=== PATIENT | female | born 1990 | race Caucasian/White ===

== ENCOUNTER 2023-05-15 18:45 | Emergency (ER) | payer OTHER, SELFPAY ==
[2023-05-15 18:51] VITALS: BP 128/78; PULSE 125; RESP 17; TEMP 36.7; O2SAT 94
[2023-05-15 19:16] LABS: Basophils Percent Auto 0.3 % (0.2-1.2); Eosinophils Percent Auto 0.1 % (0-4.4); Hematocrit 32.9 % (37.0-47.0); Hemoglobin 11.2 g/dL (12.0-15.0); Immature Granulocyte Absolute 0.04 K/mm3 (0.00-0.031); Immature Granulocyte Percent A 0.4 % (0-0.5); Lymphocytes Absolute Auto 0.95 K/mm3 (0.9-3.2); Lymphocytes Percent Auto 9.9 % (18.3-44.2); Mean Corpuscular Hemoglobin 30.6 pg (26-34); Mean Corpuscular Volume 89.9 fl (80-100); Mean Platelet Volume 10.3 fl (7.4-10.4); Monocytes Absolute Auto 0.5 K/mm3 (0.1-0.6); Monocytes Percent Auto 5.6 % (2.6-8.5); Neutrophils Percent Auto 83.7 % (45.5-73.1); Platelet Count Result 190 k/mm3 (150-375); Red Blood Count 3.66 M/mm3 (4.2-5.4); Red Cell Distribution Width 11.9 % (11.5-14.5); White Blood Count 9.6 K/mm3 (4.5-10.0)
--- NOTE | 2023-05-15 19:16 | ED.GENADULT ---
HPI - General Adult General Chief complaint: Unspecified Stated complaint: 6 MO PREG N/V BODY ACHES Time Seen by Provider: 05/15/23 18:56 History of Present Illness HPI narrative: 33-year-old female that is 6 months presents emergency department for evaluation of persistent nausea vomiting and abdominal cramping. Patient states symptoms started yesterday. Patient has not had issues with hyperemesis gravidarum during this . This was the patient's first . Patient does follow-up with Dr. Small. Patient denies any current abdominal pain or abdominal cramping. Patient states the cramping occurs with the nausea vomiting and bending over. 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 Patient denies any pain with urination Related Data Allergies Allergy/AdvReac Type Severity Reaction Status Date / Time No Known Allergies Allergy Verified 04/21/23 16:44 Review of Systems Review of Systems: All systems reviewed & are unremarkable except as noted in HPI and below PMFSH Past Medical History Medical History Abnormal Pap smear of cervix Kidney stones Suppression of menses Family History Family History Father Diabetes mellitus Asthma Malignant neoplasm of prostate Father Asthma Cancer Hypertension Diabetes mellitus Heart disease Sibling Depression Grandparent Asthma Cancer Hypertension Depression Heart disease Thyroid disorder Social History Social History Smoking status: Never smoker Alcohol intake: current Alcohol use details: socially Substance use: never Substance use type: marijuana Current Housing: Decline to Answer Concerned About Future Housing: Decline to Answer Difficulty Paying Gas/Electric Bills: Decline to Answer Difficulty Paying for Meds: Decline to Answer Currently Unemployed: Decline to Answer Education: Decline to Answer Difficulty w/ Childcare or Family Care: Decline to Answer Living arrangements: with family Occupation/Education: occupation Additional occupation/education comments: teacher Gender identity (if verbalized by the patient): Female Sexual Orientation (if Verbalized by the Patient): Straight or Heterosexual Exam Narrative: APPEARANCE: Well appearing, no pain, no distress, well-nourished. HEAD: normocephalic, atraumatic. EYES: PERRLA/EOMI, conjunctivae clear. NOSE: Normal no drainage NECK: Supple. No adenopathy, no masses. RESPIRATORY: Airway patent, respirations nonlabored. Clear to auscultation bilaterally, no rales, rhonchi, wheezing. CARDIOVASCULAR: Regular rate and rhythm without murmurs rubs or gallops. ABDOMINAL: Soft, nontender, nondistended, normal bowel sounds MUSCULOSKELETAL: Moves all extremities. Strength/ROM intact, No edema, No calf tenderness. NEURO: Alert. Cranial nerves II through XII intact. SKIN: Warm, dry. Normal Color Course Course Emergency Course: 33-year-old female presented emergency department for evaluation of persistent nausea and vomiting. Patient is being treated with IV fluids and IV Zofran. Patient did feel significantly improved with rehydration. Patient has had no further emesis in the ED. Patient's white blood cell count is 9.6 with stable hemoglobin 11.2. No significant electrolyte abnormalities. Patient did test positive for COVID Patient had no urinary complaints but UA did have some leukoesterase and bacteria. Urine culture was ordered. Vital Signs Vital signs: Vital Signs Temperature 98.0 F 05/15/23 18:51 Pulse Rate 125 H 05/15/23 18:51 Respiratory Rate 17 05/15/23 18:51 Blood Pressure 128/78 05/15/23 18:51 Pulse Oximetry 94 05/15/23 18:51 Oxygen Delivery Room Air 05/15/23 18:51 Temperature 98.0 F 05/15/23 18:51 Pulse Rate 94 05/15/23 20:15 Respi
[2023-05-15] MEDS: SODIUM CHLORIDE 0.9% IV 1,000 ML 999 ML IV CONT (19:18)
--- NOTE | 2023-05-15 19:25 | PC.NURSE ---
This RN assumed care of patient. This RN took patient report from [facility].
[2023-05-15 19:26] LABS: Alanine Aminotransferase 61 U/L (6-35); Albumin Level 3.8 g/dL (3.5-5.1); Alkaline Phosphatase 80 U/L (38-126); Anion Gap 8 mmol/L (8-16); Aspartate Amino Transferase 59 U/L (14-36); Bilirubin,Total 0.4 mg/dL (0.2-1.3); Blood Urea Nitrogen 8 mg/dL (7-17); Carbon Dioxide 22 mmol/L (22-30); Chloride 102 mmol/L (98-107); Estimated CRCL calculation 127 ml/min; Estimated Glomerular Filt Rate > 60; Glucose 134 mg/dL (65-110); Potassium 3.3 mmol/L (3.4-5.0); Sodium 132 mmol/L (137-145)
[2023-05-15] MEDS: ONDANSETRON INJ 4 MG/2 ML VIAL IV PUSH (19:31)
[2023-05-15 19:46] VITALS: BP 103/72; PULSE 112; RESP 18; O2SAT 100
[2023-05-15 19:51] LABS: Influenza A QL RT-PCR Negative (Negative); Influenza B QL RT-PCR Negative (Negative); RSV RNA, RT-PCR Negative (Negative); SARS-CoV-2 RNA PCR Positive (Negative)
[2023-05-15 20:15] VITALS: BP 104/74; PULSE 94; RESP 17; O2SAT 100
[2023-05-15 20:38] LABS: Appearance Urine Slightly Cloudy (Clear); Bilirubin Urine Negative (Negative); Blood Urine Negative (Negative); Color Urine Yellow (Yellow); Glucose Urine UA Trace mg/dL (Negative); Ketones Urine 1+ mg/dL (Negative); Leukocyte Esterase Ur 1+ LEU/UL (Negative); Nitrate Urine Negative (Negative); Protein Urine 1+ mg/dL (Negative); Specific Grav Ur >= 1.030 (1.001-1.035); Urobilinogen Urine 0.2 mg/dL (<2.0); pH Urine 5.5 (5.0-9.0)
[2023-05-15 20:55] LABS: Bacteria Urine 2+ /hpf; Need Manual Microscopic Reviewed; RBC Urine 0-2 /hpf (0-2); Squamous Epithelial Cell Urine Moderate /hpf (Few); WBC Urine 51-100 /hpf
[2023-05-15 20:56] LABS: Add Urine Microscopic? YES
== END 2023-05-15 21:22 | disposition home or self-care (01) ==
PROVIDERS: Emergency Provider Emergency Medicine; PCP Family Medicine
DX: O98.519 Other viral diseases complicating pregnancy, unspecified trimester (principal); U07.1 COVID-19; O21.2 Late vomiting of pregnancy; Z87.442 Personal history of urinary calculi; Z3A.00 Weeks of gestation of pregnancy not specified
CPT/HCPCS: 36415; 80053; 81001; 81025; 85025; 87086; 87088; 87637; 96361; 96374; 99284; J2405; J7030

== ENCOUNTER 2023-08-02 05:31 | Inpatient (IN) | payer OTHER, SELFPAY ==
[2023-08-02] VITALS (157 sets, daily range): BP systolic 90–166; BP diastolic 53–128; PULSE 69–175; TEMP 36.2–37.6; O2SAT 97–100; BMI 30.2
[2023-08-02 06:44] LABS: Basophils Percent Auto 0.2 % (0.2-1.2); Eosinophils Absolute Auto 0.1 K/mm3 (0-0.3); Eosinophils Percent Auto 0.7 % (0-4.4); Hematocrit 31.3 % (37.0-47.0); Hemoglobin 10.1 g/dL (12.0-15.0); Immature Granulocyte Absolute 0.12 K/mm3 (0.00-0.031); Immature Granulocyte Percent A 0.9 % (0-0.5); Lymphocytes Absolute Auto 3.22 K/mm3 (0.9-3.2); Lymphocytes Percent Auto 24.2 % (18.3-44.2); Mean Corpuscular HGB Conc 32.3 g/dl (32-36); Mean Corpuscular Hemoglobin 28.5 pg (26-34); Mean Corpuscular Volume 88.2 fl (80-100); Mean Platelet Volume 12.4 fl (7.4-10.4); Monocytes Absolute Auto 0.7 K/mm3 (0.1-0.6); Neutrophils Absolute Auto 9.2 K/mm3 (1.3-6.7); Platelet Count Result 193 k/mm3 (150-375); Red Blood Count 3.55 M/mm3 (4.2-5.4); Red Cell Distribution Width 13.4 % (11.5-14.5); White Blood Count 13.3 K/mm3 (4.5-10.0)
[2023-08-02] MEDS: LACTATED RINGERS 1,000 ML 125 ML IV CONT ×4 (07:20→22:59)
[2023-08-02] MEDS: OXYTOCIN 30 UNITS/NS 500 ML 30 UNITS/500 ML BAG 6 UNITS IV CONT (11:21)
[2023-08-02] MEDS: ONDANSETRON INJ 4 MG/2 ML VIAL IV PUSH (12:12)
[2023-08-02] MEDS: fentaNYL CITRATE INJ (*CRX) 100 MCG/2 ML VIAL IV PUSH (12:19)
--- NOTE | 2023-08-02 13:22 | WPDANESEPP ---
Anes - Eval Pre Procedure Procedure: Labor Epidural Date/Time: 08/02/23 13:22 Surgeon: Geovanny Preop Diagnosis: Labor Pain Pre Op Diagnosis: SROM Patient Data Age: 33 Gender: F Height: 1.68 m Weight: 85 kg Last Vital Signs Temp 36.6 C 08/02/23 12:14 Pulse 97 08/02/23 13:21 BP 119/78 08/02/23 13:21 Pulse Ox 99 08/02/23 13:16 O2 Del Method Room Air 08/02/23 07:30 Allergies Allergy/AdvReac Type Severity Reaction Status Date / Time No Known Allergies Allergy Verified 07/26/23 13:12 Home Medications Medication Instructions Recorded Confirmed Type vits no.126-ferrous fum 1 tablet PO DAILY 07/23/23 07/26/23 History 28 mg iron-folic acid 800 mcg tablet (Classic ) famotidine 40 mg tablet (Pepcid) 40 mg PO DAILY 07/26/23 07/26/23 History Laboratory Tests 08/02/23 06:31 WBC 13.3 H K/mm3 (4.5-10.0) RBC 3.55 L M/mm3 (4.2-5.4) Hgb 10.1 L g/dL (12.0-15.0) Hct 31.3 L % (37.0-47.0) MCV 88.2 fl (80-100) MCH 28.5 pg (26-34) MCHC 32.3 g/dl (32-36) RDW 13.4 % (11.5-14.5) Plt Count 193 k/mm3 (150-375) MPV 12.4 H fl (7.4-10.4) Immature Gran % (Auto) 0.9 H % (0-0.5) Neut % (Auto) 69.0 % (45.5-73.1) Lymph % (Auto) 24.2 % (18.3-44.2) Rogers % (Auto) 5.0 % (2.6-8.5) Eos % (Auto) 0.7 % (0-4.4) Baso % (Auto) 0.2 % (0.2-1.2) Lymph # (Auto) 3.22 H K/mm3 (0.9-3.2) Rogers # (Auto) 0.7 H K/mm3 (0.1-0.6) Eos # (Auto) 0.1 K/mm3 (0-0.3) Baso # (Auto) 0.0 K/mm3 (0.0-0.1) Abs Immat Gran (auto) 0.12 H K/mm3 (0.00-0.031) Absolute Neuts (auto) 9.2 H K/mm3 (1.3-6.7) Absolute Nucleated RBC 0.0 K/mm3 (0.0-0.012) Nucleated RBC % 0.0 % (0.0-0.2) RPR Pending Blood Type O Positive Antibody Screen Negative Patient hx anesthesia problems: none Family hx anesthesia problems: none Results Review: All pre-operative results and documents have been reviewed as part of the pre-operative evaluation. [facility] Past Medical History Medical History Abnormal Pap smear of cervix Kidney stones Suppression of menses Family History Family History Father Diabetes mellitus Asthma Malignant neoplasm of prostate Father Asthma Cancer Hypertension Diabetes mellitus Heart disease Sibling Depression Grandparent Asthma Cancer Hypertension Depression Heart disease Thyroid disorder Social History Social History Smoking status: Never smoker Alcohol intake: current Alcohol use details: socially Substance use: never Substance use type: marijuana Do You Feel Safe in your Home?: Yes Lack of Transportation: No Lack of Food: Never True Current Housing: I Have Housing Concerned About Future Housing: No Difficulty Paying Gas/Electric Bills: No Difficulty Paying for Meds: No Currently Unemployed: YES Education: Bachelor's Degree Difficulty w/ Childcare or Family Care: No Living arrangements: with family Occupation/Education: occupation Additional occupation/education comments: teacher Gender identity (if verbalized by the patient): Female Sexual Orientation (if Verbalized by the Patient): Straight or Heterosexual Spiritual care concerns: No Exam Day of Procedure 08/02/23 13:22 Patient weight: normal Heart: regular rate and rhythm Lungs: normal air movement Airway: Mallampati scale class II Neurological: alert and oriented
[2023-08-02] MEDS: FAMOTIDINE 20 MG/2 ML VIAL IV PUSH (14:30)
[2023-08-02] MEDS: SODIUM CHLORIDE 0.9% IV 300 ML 600 ML I-UTERINE (21:03)
[2023-08-02] MEDS: OXYTOCIN 30 UNITS/NS 500 ML 30 UNITS/500 ML BAG 999 UNITS IV CONT (22:09)
--- NOTE | 2023-08-02 22:21 | WPDOBADMIT ---
Obstetrics - Admit Note Admission Note: record reviewed. No pertinent additions to the history and/or any subsequent changes in the physical findings that are not consistent with the expected course of the were found. Additions to the history and/or subsequent changes in the physical findings follow. Here at 38 wks with SROM not in labor. After 6 hours observation without significant contractions, Pitocin started per protocol. When changed to 7 cm, tracing with repetitive variables so amnioinfusion started. Progressed quickly to complete. Progressed to c/p on my arrival head is visible without pushing.
--- NOTE | 2023-08-02 22:23 | PM.OBPRVD ---
OB - Vaginal Delivery Note Procedure Delivery date: 08/02/23 Induction method: None Delivery augmentation: Pitocin Delivery monitor: External FHT and Internal Uterine Route of delivery: Laceration Description: Periurethral (R) and Perineal - 2nd Degree Delivery repair: vicryl (3-0) Specimen: Yes (placenta) Quantitative Blood Loss (ml): 100 Anesthesia type: Epidural [place] Baby Date of : 08/02/23 Weeks of gestation at delivery: 38 Infant gender: Female presentation: vertex position: Right Occiput Anterior Placenta delivery description: Spontaneous Cord Vessel Description: 3 Vessels and Delayed Cord Clamping score one minute: 9 score five minutes: 9
[2023-08-02] MEDS: OXYTOCIN 30 UNITS/NS 500 ML 30 UNITS/500 ML BAG 125 UNITS IV CONT (22:39)
[2023-08-02] MEDS: IBUPROFEN 600 MG TABLET PO (23:11)
[2023-08-02] MEDS: WITCH HAZEL 40 PADS 1 PAD TOPICAL (23:12)
[2023-08-02] MEDS: BENZOCAINE 20% AER SPR (*SP) 56 GM CAN 1 SPRAY TOPICAL (23:12)
[2023-08-03] VITALS (7 sets, daily range): BP systolic 117–137; BP diastolic 72–83; PULSE 76–99; RESP 16–18; TEMP 36.7–37.1; O2SAT 98–100
--- NOTE | 2023-08-03 00:33 | PC.NURSE ---
Patient transferred to post room #283 via ( W/C ). Support person present. Oriented to unit, room, information board, rooming in, admission packet and security measures. Patient verbalizes understanding.
[2023-08-03 05:21] LABS: Hematocrit 26.5 % (37.0-47.0); Hemoglobin 8.4 g/dL (12.0-15.0)
[2023-08-03] MEDS: DOCUSATE SODIUM 100 MG CAPSULE PO (07:54)
[2023-08-03] MEDS: IBUPROFEN 600 MG TABLET PO ×2 (07:54→20:12)
--- NOTE | 2023-08-03 08:34 | PM.OBPNVD ---
OB - PN: Subj Subjective Date/time seen: 08/03/23 08:20 Interval history: Doing well. Urinating without difficulty. Denies passing any large clots. Denies dizziness with ambulating. Tolerating po food and fluids. Bonding with . Partner present and supportive. Patient comments: no complaints and pain well controlled [place] baby status: doing well [place] feeding status: exclusively breast feeding OB - PN: Obj Data Labs 08/03/23 05:10 Labs: Laboratory Results - last 24 hr 08/03/23 05:10 Hgb 8.4 L Hct 26.5 L OB - PN A/P Plan day: 1 Plan: routine care Time Spent With Patient Time: Total time spent is greater than 50% in coordination of care (as documented) at patient's floor/unit and/or counseling patient: Review of Systems Review of Systems: All systems reviewed & are unremarkable except as noted in HPI and below Exam Narrative: Alert and oriented. Mood is pleasant and cooperative. Perineum with minimal edema. Fundus firm and below umbilicus. Const: General: cooperative, healthy appearing, no acute distress and alert Orientation/consciousness: patient oriented x3 Limitations: no limitations Resp: Effort & Inspection: normal respiratory effort and able to speak in complete sentences Auscultation: clear to auscultation bilaterally Cardio: Rate: regular rate GI: Inspection: normal to inspection Auscultation: normal bowel sounds : General: Yes bladder normal to palpation External Female Exam: other (lochia WNL) Bimanual exam- vagina & uterus: bladder normal to palpation Other: Fundus firm and below U Skin: General skin exam: normal color and no rashes or lesions noted Neuro: General: patient oriented x3 and moves all extremities Cognition (Neuro): normal cognition Extrem: General: normal to inspection and no calf tenderness Psych: Appearance: grossly normal Mental Status: mental status grossly normal Affect: normal affect Thought process: Normal thought process present
--- NOTE | 2023-08-03 08:55 | PC.NURSE ---
Breast pump provided due to mother's request, baby won't wake up to eat. Instructions given on cleaning, care, usage, that there should be no pain, pumping schedule for milk production, collection, and storage of human milk. Patient was assessed for correct placement, flange size, to pump for comfort and nipple stretching/stimulation for adequate milk production every 3 hours (8 times in 24 hours) 1-2 times at night. Parents are encouraged to record the pumping schedule on the feeding sheet.?Mother voiced understanding of the education shared along with mom/baby guide and the pump measurement, flange fit handout for additional resource information.
[2023-08-03 10:33] LABS: Rapid Plasma Reagin Non-Reactive (NonReactive)
--- NOTE | 2023-08-04 07:48 | P.DS_ITS ---
DS: Admitting Diagnosis Discharge Date 08/04/23 Admitting Diagnosis intrauterine at term spontaneous rupture of membranes DS: Discharge Diagnosis Discharge Diagnosis (1) Normal vaginal delivery: Code(s): O80 - Encounter for full-term uncomplicated delivery Status: Acute OB - DS: Summary Hospital Course Hospital Course: 33-year-old who presented at 38 weeks after spontaneous rupture of membranes. Patient's labor was augmented with Pitocin. Patient had an un complicated vaginal delivery. Her course remained uncomplicated. She was discharged home on day 2. OB Procedures : None OB Procedures Intrapartum: Spontaneous Vag Delivery OB Procedures: : None Peripartum Data Laceration Description: Periurethral (R) and Perineal - 2nd Degree Status at Discharge Functional status at discharge: independent ambulation Overall status at discharge: patient is back to baseline Time Spent with Patient Time attestation: Total time spent providing and/or coordinating discharge services: Time spent: Less than 30 minutes Exam Const: General: comfortable and no acute distress Resp: Effort & Inspection: normal respiratory effort Auscultation: clear to auscultation bilaterally Cardio: Rate: regular rate GI: GI Palp: Yes Soft to palpation Auscultation: normal bowel sounds Other: Fundus firm below umbilicus Psych: Appearance: grossly normal Mental Status: mental status grossly normal Affect: normal affect DS: Data Data Completed and Pending Pending studies at discharge: Pending at discharge 08/02/23 23:01 Surgical [PTH] Routine Labs on day of discharge: Labs from last 24 hours 08/02/23 06:31 RPR Non-reactive Discharge Plan Discharge Discharging Clinician: Jose Antonio Espinosa Patient Disposition: Home, Self-Care Activity: as tolerated and pelvic rest Diet: regular Patient Instructions: Antibiotic Form, Perineal Tear with Delivery (GEN), Vaginal Delivery (DC) Stand Alone Forms: General Discharge Information Follow-up/Referrals: Soco Small MD [Physician] - Discharge Medications: New acetaminophen 500 mg tablet 500 mg PO Q6H PRN (Reason: pain) Qty: 30 0RF ibuprofen 600 mg tablet 600 mg PO Q6H PRN (Reason: pain) Qty: 30 0RF Continued famotidine [Pepcid] 40 mg tablet 40 mg PO DAILY Classic 28 mg iron- 800 mcg Tablet 1 tablet PO DAILY Date of admission: 08/02/23 05:31 Primary Care Provider: Lizz Long Admitting Provider: Soco Small Attending physician on admission: Soco Small Condition: Stable
[2023-08-04 08:48] VITALS: BP 122/84; PULSE 75; RESP 20; TEMP 36.3; O2SAT 99
[2023-08-04] MEDS: MULTIVIT/MIN/PREN/FOL AC/IRON TABLET 1 TAB PO (09:24)
[2023-08-04] MEDS: MEASLES,MUMPS,RUBELLA VACCINE 0.5 ML VIAL SUB-Q (12:26)
--- NOTE | 2023-08-04 16:04 | PC.NURSE ---
Addendum entered by Zulma Thomas RN 08/04/23 16:14: The later report from the primary RN assisting with a latch is on the wrong patient. Primary RN states mother did not call out for latch assistance before going home. Original Note: [id number] Introductions were made, then consulted with patient to assess needs related to . Mother led the conversation with her?plans to feed?her infant, the?experience so far and parents state received a bottle at 0815. Encouraged understanding of the benefits of skin to skin (demonstrating unwrapping and placing upright on her chest), stimulating with massage touch, changing positions to encourage wakefulness, how to watch for early feeding cues, responsive feeding, feeding on demand (aiming for 8-12 times in 24 hours, about every 2-3 hours), milk production, building/maintaining a milk supply, duration of feeding, signs of adequate intake/output and how to record on the feeding sheet. Reviewed positioning and ear, shoulder, hip alignment, supporting the breast to facilitate a deep latch, asymmetrical latch (off-center), leading with the chin with a big, open, wide gape and body close to mother. Reminded mother to use good handwashing technique to prevent infection. Mother is feeding appropriately for growth of and understands stimulating infant to eat if needed. has had appropriate feedings in the last 24 hours meets the outcomes for weight, output, blood sugar and jaundice at this time with combo feeding. Mother states she is confident to continue effectively feed her at home, when to call for assistance, denies any additional assistance or education at this time. Reinforced understanding of milk production, transition of milk, signs of adequate intake, transition of stool, prevention/relief of engorgement, plugged ducts, mastitis, responsive watching for feeding cues, the different methods of stimulating to breastfeed 1-3 hours after the start of the last feeding, community resources, and when to call a provider using the resource of the mom and baby guide and feeding sheet. Mother voiced understanding of the education shared and was encouraged to call for latch assistance with the next feeding. Primary RN reported later in the day that mother called out and she assisted with the latch with no complaint of pain.
[2023-08-05 11:30] VITALS: BP 129/90; PULSE 78; RESP 18; TEMP 37.1; O2SAT 98
== END 2023-08-04 14:25 | disposition home or self-care (01) | DRG 807 ==
LOC: ANHLDR 06:11 → ANHOB2 08-03 00:34
PROVIDERS: Obstetrics & Gynecology Gynecology; Admitting Provider Obstetrics & Gynecology; PCP Family Medicine; Visit Provider Obstetrics & Gynecology
DX: O70.1 Second degree perineal laceration during delivery (principal); Z37.0 Single live birth; Z3A.38 38 weeks gestation of pregnancy; O71.82 Other specified trauma to perineum and vulva
CPT/HCPCS: 36415; 84112; 85014; 85018; 85025; 86592; 86850; 86900; 86901; 88307; 90710; A9270; J2405; J2590; J2795; J3010; J7030; J7120

== ENCOUNTER 2024-06-27 12:43 | Outpatient (CLI) | payer OTHER, SELFPAY ==
--- NOTE | ~2024-06-27 | US_ITS ---
EXAMINATION: US OB transvaginal DATE: 06/27/2024 13:12 INDICATION: Amenorrhea. Establish dating of during first trimester TECHNIQUE: Real-time pelvic ultrasound utilizing both a transvaginal and transabdominal probe was pe rformed. The interpreting radiologist was not present for the study. COMPARISON: None. FINDINGS: The uterus measures 7.6 x 3.9 x 5.6 cm. There is an intrauterine gestational sac. A 4 mm yolk sac is identified but there is no discernible pole. The mean sac diameter measures 7 mm, which is out of range for determination of estimated gestational age. There is eccentric positioning of the gesta tional sac which is located at the lateral right side of the fundus. Is positioned in the region of t he right correlate with peripheral margin. The peripheral margin of the anechoic gestational sac exte nds to within 7 mm of the serosal surface of the uterus. On one of the transverse images the peripher al margin of the decidual reaction surrounding the gestational sac extends to within 3 mm of the sero [place] surface of the uterus. On the cine images there is suggestion of a possible septate uterus althou gh a true coronal view of the uterus is not obtained for more definitive determination. The right ovary measures 2.9 x 2.8 x 1.9 cm. The left ovary measures 2.5 x 2.4 x 2.0 cm. There is a 1 .2 cm hypoechoic likely corpus luteum cyst in the left ovary. There is no free fluid in the pelvis. IMPRESSION: 1. 4 mm intrauterine gestational sac which is eccentric positioned in the region of the right cornua with the sac extends to within 7 mm the serosal surface of the uterus and the surrounding decidual re action to within 3 mm the serosal surface of uterus. This is concerning for either interstitial or po tentially a cornual with suggestion of possible septate uterus on the cine imaging. Dr. Danae knapp discussed these findings with Dr. Espinosa at 1:55 PM. 2. Gestational sac too small to diagnostically assess for estimated gestational age. Reviewed, dictated and finalized at location B. SITE COORDINATOR IMPRESSION: 1. 4 mm intrauterine gestational sac which is eccentric positioned in the regio n of the right cornua with the sac extends to within 7 mm the serosal surface o f the uterus and the surrounding decidual reaction to within 3 mm the serosal s urface of uterus. This is concerning for either interstitial or potentially a c ornual with suggestion of possible septate uterus on the cine imaging . Dr. Cooper discussed these findings with Dr. Espinosa at 1:55 PM. 2. Gestational sac too small to diagnostically assess for estimated gestational age.
== END 2024-06-27 12:44 | disposition home or self-care (01) ==
LOC: MICIMG 12:43
PROVIDERS: PCP Student in an Organized Health Care Education/Training Program; Visit Provider Student in an Organized Health Care Education/Training Program
DX: N91.2 Amenorrhea, unspecified (principal)
CPT/HCPCS: 76817

== ENCOUNTER 2024-07-03 11:41 | Outpatient (CLI) | payer OTHER, SELFPAY | END 2024-07-03 11:42 | disposition home or self-care (01) | LOC: ANHLAB 11:42 | PROVIDERS: PCP Student in an Organized Health Care Education/Training Program; Visit Provider Obstetrics & Gynecology | DX: N94.89 Other specified conditions associated with female genital organs and menstrual cycle (principal) | CPT/HCPCS: 36415; 84702 ==

== ENCOUNTER 2024-07-13 00:57 | Day surgery (SDC) | payer OTHER, SELFPAY ==
[2024-07-10 08:31] VITALS: BMI 22.9
--- NOTE | 2024-07-10 08:32 | PC.NURSE ---
Report to the Outpatient Waiting Room, entrance under the green pavilion located off [facility], at time _1045_ on date _[id number]_. Planned Procedure Time: _1245_.? Time changes happen often and if your time is changed the preop area will call you the afternoon before. - You and your visitor will be asked to self-screen and do not enter if you have any COVID symptoms. Please call surgeon if you need to reschedule. - A mask is optional within the hospital at this time. Patients may have clear liquids (water, carbonated beverages, clear teas, apple juice) until 3 hours prior to surgery with a maximum of 20 ounces. - No food from midnight until time of surgery and no smoking. This includes no chewing gum, candy or mints. Take only the following medications with a SIP of water on the morning of surgery: ___None DO NOT STOP ANY OF YOUR OTHER PRESCRIPTION MEDICATIONS PRIOR TO SURGERY EXCEPT THE FOLLOWING Medications to discontinue per physician ____Vinhharjinder says she stopped vitamin a couple days ago.____ Date to take last dose Please no make-up, nail uruguayan, hairspray, perfume, deodorant, or body powder the day of surgery.? No jewelry (including any body piercings) or valuables the day of surgery, leave them at home.? Please take a shower or bath the night before, or the morning of, surgery with an antibacterial soap.? Wear comfortable, loose fitting clothing.? - Jewelry must be removed prior to entering the operating room.? Rings and piercings that are not removed may be cut off. - The hospital will not accept responsibility for valuables.? - Please leave all valuables, including medications, at home the day of surgery. If you are going home after surgery, a licensed company truck driver must drive you home.? - NO public transportation without another adult if you receive anesthesia. - We recommend that an adult stay with you for 24 hours following discharge. - We also recommend that you do not drive, make important decision, drink alcoholic beverages, or take any drugs that were not prescribed by your health care provider for at least 24 hours after your discharge time. Follow any additional instructions given to you from your surgeon. Telephone instructions given to __Amalia__and asked if any additional questions and then verbalized understanding. Patient advised to call surgeon office or pre surgery nurse liaison [phone] if any additional questions.
--- NOTE | 2024-07-13 07:35 | PM.IMHP ---
H&P: HPI History of Present Illness Date/Time: 07/13/24 07:35 Chief Complaint: spontaneous missed Narrative: 34-year-old who presents for suction D&C for spontaneous missed . Patient had early loss diagnosed on ultrasound. Patient started to have bleeding and passage of tissue last night. Patient elects for surgical management. Review of Systems Cardiovascular: Cardiovascular: Denies chest pain, Denies leg edema, Denies palpitations, Denies dyspnea and Denies dyspnea on exertion Respiratory: Respiratory: Denies cough, Denies dyspnea and Denies dyspnea on exertion Gastrointestinal: Gastrointestinal: Denies abdominal pain, Denies constipation, Denies diarrhea, Denies nausea and Denies vomiting Genitourinary: Genitourinary: Denies hematuria, Denies urinary frequency, Denies dysuria, Denies pelvic pain, Denies urinary incontinence and Denies vaginal discharge Neurologic: Reports system reviewed and no additional complaints, except as documented Psychiatric: Psychiatric: Reports no additional psychiatric complaints Endocrine: Endocrine: Denies palpitations PMFSH Past Medical History Medical History Abnormal Pap smear of cervix Kidney stones Suppression of menses Family History Family History Father Diabetes mellitus Asthma Malignant neoplasm of prostate Father Asthma Cancer Hypertension Diabetes mellitus Heart disease Sibling Depression Grandparent Asthma Cancer Hypertension Depression Heart disease Thyroid disorder Social History Social History Smoking status: Never smoker Alcohol intake: current Alcohol use details: socially Substance use: never Substance use type: marijuana Do You Feel Safe in your Home?: Yes Lack of Transportation: No Lack of Food: Never True Current Housing: I Have Housing Concerned About Future Housing: No Difficulty Paying Gas/Electric Bills: No Difficulty Paying for Meds: No Currently Unemployed: YES Education: Bachelor's Degree Difficulty w/ Childcare or Family Care: No Living arrangements: with family Occupation/Education: occupation Additional occupation/education comments: teacher Gender identity (if verbalized by the patient): Female Sexual Orientation (if Verbalized by the Patient): Straight or Heterosexual Spiritual care concerns: No Meds Home Medications and Allergies Home Medications Medication Instructions Recorded Confirmed Type vits no.126-ferrous fum 1 tablet PO DAILY 07/23/23 07/10/24 History 28 mg iron-folic acid 800 mcg tablet (Classic ) Allergies Allergy/AdvReac Type Severity Reaction Status Date / Time No Known Allergies Allergy Verified 07/10/24 08:27 Exam Const: General: no acute distress Eyes: EOM: EOMs intact bilaterally Neck: Neck: supple Thyroid: thyroid normal Chest: Breast/axilla inspection: normal inspection of the breasts Breast/axilla palpation: normal palpation of the breasts, normal palpation of the axillae and no axillary lymphadenopathy Resp: Effort & Inspection: normal respiratory effort Auscultation: clear to auscultation bilaterally Cardio: Rate: regular rate Rhythm: regular rhythm GI: Inspection: non-distended GI Palp: Yes Soft to palpation, No Tenderness to palpation present (GI) and No Guarding due to palpation present (GI) Auscultation: normal bowel sounds : General: No bladder normal to palpation External Female Exam: normal external appearance Speculum Exam - Vagina: normal vaginal discharge and No vaginal bleeding Speculum Exam - Cervix: nontender Bimanual exam- vagina & uterus: No bladder normal to palpation and No Cervical tenderness present OB/external & speculum: No vaginal bleeding Skin: General skin exam: normal color and no rashes or lesions noted Neuro: Cognition (Neuro): normal cognition Speech: normal speech Extrem: General: normal to inspection and no edema Psych: Mental Status: mental status grossly normal Affect: normal affect Assessment and Plan Assessment and plan (1) Missed : Code(s): O02.1 - Missed Status: Acute Assessment and Plan: 34-year-old G2 P 101 1 who presents for suction D&C for management of missed Patient had early loss diagnosed on early ultrasound patient elected for surgical management of early loss Patient started having bleeding with passage of tissue last night Will plan for suction D&C under ultrasound guidance
[2024-07-13 11:30] VITALS: BP 102/72; PULSE 100; RESP 16; TEMP 36.5; O2SAT 100; BMI 22.4
[2024-07-13] MEDS: LACTATED RINGERS 1,000 ML 30 ML IV CONT (11:30)
--- NOTE | 2024-07-13 11:40 | WPDHPUPDATE1 ---
History and Physical Update Update Date/Time: 07/13/24 11:40 History and Physical has been reviewed, including an updated exam of the patient. There are NO changes in the patient's condition. Risks, benefits, and alternatives have been discussed and questions answered. Patient agrees to proceed with procedure.
[2024-07-13] MEDS: ACETAMINOPHEN 500 MG TABLET 1000 MG PO (12:07)
[2024-07-13] MEDS: DOXYCYCLINE 100 MG/NS 100 ML 100 MG/100 ML BAG IVPB (12:07)
--- NOTE | 2024-07-13 12:25 | PC.NURSE ---
Preop RN requested I come to speak with the patient regarding the safety of her child after receiving doxycycline. According to [employer] and Mother's Milk 2022, it is safe to breastfeed when taking doxycycline short term. It is an L3 category drug, probably compatible with . Advised patient that a one time IV dose of doxycycline will have minimal transfer to breast milk. Side effects for the infant during short term use (2-3 weeks) can be nausea and vomiting as well as a rash. Mom states that she is reassured about after her procedure today.
--- NOTE | 2024-07-13 12:43 | P.PNAN_ITS ---
Anes - Initial Pre Proc Eval Procedure: Operation Date: 07/13/24 12:45 Proposed Procedures p Suction Dilation and Curettage - Jose Antonio Espinosa MD Date/Time: 07/13/24 12:43 Surgeon: Jose Antonio Espinosa MD Pre Op Diagnosis: missed ab Patient Data Age: 34 Gender: F Height: 1.68 m Weight: 63 kg Last Vital Signs Temp 36.5 C 07/13/24 11:30 Pulse 100 07/13/24 11:30 Resp 16 07/13/24 11:30 BP 102/72 07/13/24 11:30 Pulse Ox 100 07/13/24 11:30 O2 Del Method Room Air 07/13/24 11:30 Allergies Allergy/AdvReac Type Severity Reaction Status Date / Time No Known Allergies Allergy Verified 07/13/24 11:54 Home Medications Medication Instructions Recorded Confirmed Type vits no.126-ferrous fum 1 tablet PO DAILY 07/23/23 07/13/24 History 28 mg iron-folic acid 800 mcg tablet (Classic ) Patient hx anesthesia problems: none Family hx anesthesia problems: none Results Review: All pre-operative results and documents have been reviewed as part of the pre- operative evaluation. [facility] Past Medical History Medical History Abnormal Pap smear of cervix Kidney stones Suppression of menses Family History Family History Father Diabetes mellitus Asthma Malignant neoplasm of prostate Father Asthma Cancer Hypertension Diabetes mellitus Heart disease Sibling Depression Grandparent Asthma Cancer Hypertension Depression Heart disease Thyroid disorder Social History Social History Smoking status: Never smoker Alcohol intake: current Alcohol use details: socially Substance use: never Substance use type: marijuana Do You Feel Safe in your Home?: Yes Lack of Transportation: No Lack of Food: Never True Current Housing: I Have Housing Concerned About Future Housing: No Difficulty Paying Gas/Electric Bills: No Difficulty Paying for Meds: No Currently Unemployed: YES Education: Bachelor's Degree Difficulty w/ Childcare or Family Care: No Living arrangements: with family Occupation/Education: occupation Additional occupation/education comments: teacher Gender identity (if verbalized by the patient): Female Sexual Orientation (if Verbalized by the Patient): Straight or Heterosexual Spiritual care concerns: No Anes - Eval Final PreProcedure Day of Procedure 07/13/24 12:43 Patient weight: normal Heart: regular rate and rhythm Lungs: clear to auscultation Airway: Mallampati scale class II Neurological: alert and oriented Last oral intake: >/= 8 hours ASA classification: II Emergent: no Anesthetic plan: proceed Anesthesia type and monitoring: general GIVS and standard monitoring Results Review: All pre-operative results and documents have been reviewed as part of the pre- operative evaluation. Informed Consent: The patient's anesthetic plan and its attendant risks and benefits were discussed with the patient/family/POA. Questions were solicited and answers provided to the satisfaction of the patient/family/POA.
--- NOTE | 2024-07-13 13:07 | W.PM.PROC2 ---
Procedure Note - Detailed Date of Procedure 07/13/24 Pre-op Diagnosis missed ab Post-op Diagnosis Same Procedure Performed Suction Dilation & curettage Surgeon Jose Antonio Espinosa MD Anesthesia General Indications spontaneous missed on pelvic US Findings intrauterine products of conception Description of Procedure The patient was taken to the operating room after a missed had been noted on on transvaginal ultrasound. The risks, benefits and alternatives of the procedure were reviewed with the patient and informed consent was obtained. The patient was taken to the OR and anesthesia was noted to be adequate. The patient was placed in the dorsolithotomy position. Pelvic exam was performed with findings noted above. The patient was prepped and draped in the usual sterile fashion. Sterile speculum was placed in the vagina and the cervix was grasped with a tenaculum. The cervix was dilated further to allow for passage of a 8 mm suction curette. The 8 mm suction curette was gently advanced to the fundus, suction was activated, and the tip was rotated while being withdrawn to clear the uterus of products. This suction process was repeated 3 additional times due to the quantity of material in the uterus. The sharp curette was introduced and advanced to the fundus to remove any remaining products. The suction curette was reintroduced one final time to ensure all products had been removed. The entire procedure was performed on direct bedside US. Good endometrial stripe was noted on US. The tenaculum was removed. Good hemostasis was noted. Instrument, sponge, and sharp counts were correct. Patient tolerated the procedure well and was taken to the recovery room in stable condition. Estimated Blood Loss 15 Drains No Packing No Pathology Yes (products of conception ) Complications No immediate complications Condition Stable Disposition PACU [facility] Billing Surgery - Charge Forward: Surgery Billing
[2024-07-13 13:09] VITALS: BP 94/53; PULSE 76; RESP 14; O2SAT 98
[2024-07-13 13:35] VITALS: BP 90/49; PULSE 65; RESP 14; O2SAT 100
[2024-07-13 14:05] VITALS: BP 102/57; PULSE 68; RESP 14
== END 2024-07-13 14:25 | disposition home or self-care (01) ==
PROVIDERS: PCP Family Medicine; Visit Provider Student in an Organized Health Care Education/Training Program
PROC: (CPT 59820; principal; 2024-07-13 12:45)
DX: O02.1 Missed abortion (principal)
CPT/HCPCS: 59820; 88305; A9270; J1100; J2003; J2250; J2405; J2704; J3010; J7120

== ENCOUNTER 2024-11-29 08:41 | Outpatient (CLI) | payer OTHER, SELFPAY ==
--- NOTE | ~2024-11-29 | MMUS_ITS ---
EXAMINATION: MM diagnostic valeria BI w clement, US breast BI complete HISTORY: Palpable right breast abnormality following trauma TECHNIQUE: Additional 3-D tomosynthesis images of the breasts were performed and synthetic 2-D images were generated. CAD analysis was submitted and interpreted. High resolution complete bilateral breas t ultrasound was performed. COMPARISON: No prior studies BREAST PARENCHYMAL COMPOSITION: Dense: The breasts are extremely dense, which lowers the sensitivity of mammography. FINDINGS: MAMMOGRAPHIC FINDINGS: There are no suspicious masses, calcifications or architectural distortion in either breast to sugges t malignancy. ULTRASOUND: Complete US of all 4 quadrants of the breast/s and retroareolar region was reviewed. Right breast: In the area of palpable concern at 6:00 near the nipple there is an oval hypoechoic mas s measuring 1.5 cm greatest dimension without internal vascularity. Margins are somewhat irregular on the transverse view. IMPRESSION: 1. Complex irregular shaped 1.5 cm right breast mass in the subareolar location corresponding to the area of palpable concern 2. Ultrasound-guided right breast biopsy recommended. BI-RADS category 4, suspicious findings. Reviewed, dictated and finalized at location A. IMPRESSION: 1. Complex irregular shaped 1.5 cm right breast mass in the subareolar location corresponding to the area of palpable concern 2. Ultrasound-guided right breast biopsy recommended. BI-RADS category 4, suspicious findings.
== END 2024-11-29 08:42 | disposition home or self-care (01) ==
PROVIDERS: PCP Family Medicine; Visit Provider Family Medicine
DX: N63.41 Unspecified lump in right breast, subareolar (principal)
CPT/HCPCS: 76641; 77062; 77066; G0279

== ENCOUNTER 2024-12-27 07:08 | Outpatient (CLI) | payer OTHER, SELFPAY ==
--- NOTE | ~2024-12-27 | MMUS_ITS ---
MM post biopsy diagnostic RT, US breast biopsy RT w image EXAMINATION: US GUIDED NEEDLE BIOPSY WITH VACUUM ASSISTANCE DATE: 12/27/2024 08:29 CDT INDICATION: Right breast mass seen on prior examination. Ultrasound-guided core biopsy is requested to evaluate for malignancy. BREAST PARENCHYMAL COMPOSITION: Dense: The breasts are extremely dense, which lowers the sensitivity of mammography. TECHNIQUE AND FINDINGS: The risks and potential benefits of the procedure were discussed with the patient, and written inform ed consent was obtained. After sterile preparation of the right breast, 1% lidocaine was utilized fo r local anesthesia. 1% lidocaine with epinephrine was used for deep anesthesia. A 10G vacuum-assisted biopsy gun needle was advanced through to the outer edge of the region of inter est from a superior approach utilizing sonographic guidance. A total of 4 tissue core samples were o btained through the lesion. An Inrad tissue marker clip was then placed at the biopsy site. Hemostas is was achieved. The patient tolerated procedure well and there was no evidence of immediate complication. The patien t was given verbal instructions partly is from the department. Right breast mammograms to document t issue marker clip placement. The tissue samples were submitted to surgical pathology for histologic a nalysis. IMPRESSION: 1. Successful ultrasound-guided vacuum-assisted biopsy of right breast mass with post procedure mamm ogram for marker placement. Please refer to pathology report for histologic analysis. Reviewed, dictated and finalized at location [] IMPRESSION: 1. Successful ultrasound-guided vacuum-assisted biopsy of right breast mass wi th post procedure mammogram for marker placement. Please refer to pathology rep ort for histologic analysis.
== END 2024-12-27 07:09 | disposition home or self-care (01) ==
LOC: ANHIMG 07:15
PROVIDERS: PCP Family Medicine; Referring Provider Student in an Organized Health Care Education/Training Program; Visit Provider Family Medicine
DX: N63.14 Unspecified lump in the right breast, lower inner quadrant (principal); N62 Hypertrophy of breast
CPT/HCPCS: 19083; 77065; 88305; A4648

== ENCOUNTER 2024-12-30 09:28 | Outpatient (CLI) | payer OTHER, SELFPAY ==
--- NOTE | ~2024-12-30 | US_ITS ---
EXAMINATION: US OB <=14 wk fetus w TV DATE: 12/31/2024 10:19 CDT INDICATION: Viability COMPARISON: None TECHNIQUE: Real-time transabdominal obstetric ultrasound. FINDINGS: 3 para 1 Estimated date of delivery by last menstrual period is 08/21/2025 The uterus measures 9.0 x 4.8 x 7.5 cm. A gestational sac is identified within the uterus. A pole is identified, with a crown-rump length that measures 0.7 cm, corresponding to an approx imate gestational age of 6 weeks and 4 days. cardiac activity is identified at a rate of 122 bpm. The right ovary measures 3.0 x 2.1 x 2.7 cm. The left ovary measures 2.8 x 1.3 x 2.7 cm. Estimated date of delivery by ultrasound is 08/21/2025 IMPRESSION: Single intrauterine gestation with an approximate gestational age of 6 weeks and 4 days, with c ardiac activity identified. Reviewed, dictated and finalized at location A. IMPRESSION: Single intrauterine gestation with an approximate gestational age of 6 weeks an d 4 days, with cardiac activity identified.
== END 2024-12-30 09:29 | disposition home or self-care (01) ==
LOC: MICIMG 09:29
PROVIDERS: PCP Family Medicine; Visit Provider Student in an Organized Health Care Education/Training Program
DX: Z34.91 Encounter for supervision of normal pregnancy, unspecified, first trimester (principal); Z3A.01 Less than 8 weeks gestation of pregnancy
CPT/HCPCS: 76801; 76817

== ENCOUNTER 2025-07-26 22:38 | Inpatient (IN) | payer OTHER, SELFPAY ==
[2025-07-26] VITALS (25 sets, daily range): BP systolic 122–149; BP diastolic 52–88; PULSE 88–115; TEMP 36.9; O2SAT 98–100; BMI 29.2
[2025-07-26] MEDS: LACTATED RINGERS 1,000 ML 125 ML IV CONT ×2 (23:12→23:49)
[2025-07-26 23:20] LABS: Hematocrit 30.0 % (37.0-47.0); Hemoglobin 9.5 g/dL (12.0-15.0); Immature Granulocyte Percent A 0.8 % (0-0.5); Lymphocytes Absolute Auto 3.16 K/mm3 (0.9-3.2); Mean Corpuscular HGB Conc 31.7 g/dl (32-36); Mean Corpuscular Hemoglobin 26.2 pg (26-34); Mean Corpuscular Volume 82.6 fl (80-100); Nucleated Red Blood Cells Absolute Auto 0.000 K/mm3 (0.0-0.012); Nucleated Red Blood Cells Perc 0.0 % (0.0-0.2); Platelet Count Result 212 k/mm3 (150-375); Red Blood Count 3.63 M/mm3 (4.2-5.4); White Blood Count 13.8 K/mm3 (4.5-10.0)
--- NOTE | 2025-07-26 23:24 | WPDANESEPP ---
Anes - Eval Pre Procedure Procedure: labor epidural Date/Time: 07/26/25 23:24 Surgeon: hailey Preop Diagnosis: pain during labor Pre Op Diagnosis: Leaking, contractions Patient Data Age: 35 Gender: F Height: Weight: Last Vital Signs Pulse 102 H 07/26/25 23:15 BP 136/84 07/26/25 23:15 Pulse Ox 100 07/26/25 23:20 Allergies Allergy/AdvReac Type Severity Reaction Status Date / Time No Known Allergies Allergy Verified 07/25/25 09:38 Home Medications ?Medication ?Instructions ?Recorded ?Confirmed ?Type vits no.126-ferrous fum 1 tablet PO DAILY 07/23/23 07/23/25 History 28 mg iron-folic acid 800 mcg tablet (Classic ) ondansetron 4 mg disintegrating 4 mg PO Q6H PRN nausea and 01/12/25 07/23/25 Rx tablet vomiting #30 tabs ferrous sulfate 325 mg (65 mg 325 mg PO DAILY 06/13/25 07/23/25 History iron) tablet omeprazole 20 mg capsule,delayed 20 mg PO DAILY #90 caps 06/25/25 07/23/25 Rx release Laboratory Tests 07/26/25 23:16 WBC 13.8 H K/mm3 (4.5-10.0) RBC 3.63 L M/mm3 (4.2-5.4) Hgb 9.5 L g/dL (12.0-15.0) Hct 30.0 L % (37.0-47.0) MCV 82.6 fl (80-100) MCH 26.2 pg (26-34) MCHC 31.7 L g/dl (32-36) RDW 14.9 H % (11.5-14.5) Plt Count 212 k/mm3 (150-375) MPV 11.7 H fl (7.4-10.4) Immature Gran % (Auto) 0.8 H % (0-0.5) Neut % (Auto) 71.0 % (45.5-73.1) Lymph % (Auto) 23.0 % (18.3-44.2) [place] % (Auto) 4.8 % (2.6-8.5) Eos % (Auto) 0.3 % (0-4.4) Baso % (Auto) 0.1 L % (0.2-1.2) Lymph # (Auto) 3.16 K/mm3 (0.9-3.2) [place] # (Auto) 0.7 H K/mm3 (0.1-0.6) Eos # (Auto) 0.0 K/mm3 (0-0.3) Baso # (Auto) 0.0 K/mm3 (0.0-0.1) Abs Immat Gran (auto) 0.11 H K/mm3 (0.00-0.031) Absolute Neuts (auto) 9.8 H K/mm3 (1.3-6.7) Absolute Nucleated RBC 0.000 K/mm3 (0.0-0.012) Nucleated RBC % 0.0 % (0.0-0.2) Blood Type Pending Antibody Screen Pending Patient hx anesthesia problems: none Family hx anesthesia problems: none Results Review: All pre-operative results and documents have been reviewed as part of the pre-operative evaluation. [facility] Past Medical History Medical History Miscarriage Suppression of menses Abnormal Pap smear of cervix Kidney stones Surgical History Surgical History H/O dilation and curettage Family History Family History Malignant neoplasm of prostate Father Diabetes mellitus Father Father Depression Sibling Grandparent Heart disease Father Grandparent Cancer Father Grandparent Hypertension Father Grandparent Thyroid disorder Grandparent Asthma Father Father Grandparent Social History Social History Smoking status: Never smoker Alcohol intake: former Alcohol use details: socially Substance use: never Substance use type: marijuana Lack of Transportation: No Lack of Food: Never True Current Housing: I Have Housing Concerned About Future Housing: No Difficulty Paying Gas/Electric Bills: No Difficulty Paying for Meds: No Currently Unemployed: YES Education: Bachelor's Degree Difficulty w/ Childcare or Family Care: No Living arrangements: with family Occupation/Education: occupation Additional occupation/education comments: teacher Gender identity (if verbalized by the patient): Female Sexual Orientation (if Verbalized by the Patient): Straight or Heterosexual Spiritual care concerns: No Exam Day of Procedure 07/26/25 23:24
--- NOTE | 2025-07-26 23:29 | LDADM ---
This patient, Amalia Lazar, was admitted to Labor/Delivery/Recovery 102 on 07/26/25 at 22:38. Plans for labor, pain management and were discussed with patient. Patient/family oriented to hospital policies and general routines including ID bracelet, bed and alarms, visiting hours, pain management, procedures, bathroom and other care routines, personal items, smoking policy, room service/diet and guest tray routines, security routines, and visiting hours. Patient/Family are encouraged to report perceived risks to care and to ask questions if they do not understand what they are told or what they should do. See [facility] for further documentation.
[2025-07-26 23:39] LABS: OBXCEM ROM Plus Positive (Negative)
[2025-07-26] MEDS: AMPICILLIN SODIUM 2 GM in SODIUM CHLORIDE 0.9% IV 100 ML 200 ML IVPB (23:45)
[2025-07-27] VITALS (53 sets, daily range): BP systolic 114–159; BP diastolic 68–144; PULSE 68–142; RESP 15–18; TEMP 36.6–37; O2SAT 98–100
[2025-07-27 00:02] LABS: Syphilis IgG/IgM Antibody Non-Reactive (Nonreactive)
--- NOTE | 2025-07-27 00:11 | PM.IMHP2 ---
H&P: HPI History of Present Illness Date/Time: 07/27/25 00:11 Chief Complaint: Haley chavez Narrative: 35 y/o at 36 3/7 weeks who had contractions this evening. She then had a gush of clear fluid, followed by more intense contractions. GBS unknown. Fetus has been nonvertex. Epidural was just placed, and she is comfortable. Have started ampicillin. Review of Systems Review of Systems: All systems reviewed & are unremarkable except as noted in HPI and below PMFSH Past Medical History Medical History Miscarriage Suppression of menses Abnormal Pap smear of cervix Kidney stones Surgical History Surgical History H/O dilation and curettage Family History Family History Father Diabetes mellitus Asthma Malignant neoplasm of prostate Father Asthma Cancer Hypertension Diabetes mellitus Heart disease Sibling Depression Grandparent Asthma Cancer Hypertension Depression Heart disease Thyroid disorder Social History Social History Smoking status: Never smoker Alcohol intake: former Alcohol use details: socially Substance use: never Substance use type: marijuana Lack of Transportation: No Lack of Food: Never True Current Housing: I Have Housing Concerned About Future Housing: No Difficulty Paying Gas/Electric Bills: No Difficulty Paying for Meds: No Currently Unemployed: YES Education: Bachelor's Degree Difficulty w/ Childcare or Family Care: No Living arrangements: with family Occupation/Education: occupation Additional occupation/education comments: teacher Gender identity (if verbalized by the patient): Female Sexual Orientation (if Verbalized by the Patient): Straight or Heterosexual Spiritual care concerns: No Meds Home Medications and Allergies Home Medications ?Medication ?Instructions ?Recorded ?Confirmed ?Type vits no.126-ferrous fum 1 tablet PO DAILY 07/23/23 07/26/25 History 28 mg iron-folic acid 800 mcg tablet (Classic ) ondansetron 4 mg disintegrating 4 mg PO Q6H PRN nausea and 01/12/25 07/26/25 Rx tablet vomiting #30 tabs ferrous sulfate 325 mg (65 mg 325 mg PO DAILY 06/13/25 07/26/25 History iron) tablet omeprazole 20 mg capsule,delayed 20 mg PO DAILY #90 caps 06/25/25 07/26/25 Rx release Allergies Allergy/AdvReac Type Severity Reaction Status Date / Time No Known Allergies Allergy Verified 07/26/25 23:29 Vital Signs Vital Signs - 24 hr 07/26/25 22:55 07/26/25 23:10 07/26/25 23:11 Pulse Rate 93 Blood Pressure 145/84 H Pulse Oximetry 99 Oxygen Delivery Room Air 07/26/25 23:15 07/26/25 23:20 07/26/25 23:24 Pulse Rate 102 H Blood Pressure 136/84 Pulse Oximetry 100 100 98 Oxygen Delivery 07/26/25 23:27 07/26/25 23:31 07/26/25 23:32 Pulse Rate 101 H 99 Blood Pressure 141/68 H 126/71 Pulse Oximetry 99 100 Oxygen Delivery 07/26/25 23:33 07/26/25 23:35 07/26/25 23:37 Pulse Rate 107 H 98 Blood Pressure 133/88 125/86 Pulse Oximetry 100 Oxygen Delivery 07/26/25 23:38 07/26/25 23:41 07/26/25 23:42 Pulse Rate 96 98 Blood Pressure 130/57 L 144/52 H Pulse Oximetry 99 Oxygen Delivery 07/26/25 23:43 07/26/25 23:45 07/26/25 23:47 Pulse Rate 93 102 H Blood Pressure 140/77 149/85 H Pulse Oximetry 98 Oxygen Delivery 07/26/25 23:48 07/26/25 23:51 07/26/25 23:52 Pulse Rate 101 H 97 Blood Pressure 143/80 H 122/88 Pulse Oximetry 99 Oxygen Delivery 07/26/25 23:53 07/26/25 23:55 07/26/25 23:57 Pulse Rate 101 H 90 Blood Pressure 122/69 127/73 Pulse Oximetry 99 Oxygen Delivery 07/26/25 23:58 07/27/25 00:00 07/27/25 00:02 Pulse Rate 103 H 91 Blood Pressure 128/67 123/77 Pulse Oximetry 99 Oxygen Delivery 07/27/25 00:03 07/27/25 00:06 07/27/25 00:07 Pulse Rate 93 97 Blood Pressure 130/78 130/78 Pulse Oximetry 99 100 Oxygen Delivery 07/27/25 00:08 07/27/25 00:09 Pulse Rate 91 Blood Pressure 127/71 Pulse Oximetry 99 100 Oxygen Delivery Exam Const: Other: Well-developed, well-nourished female in no acute distress. Neck: Other: Neck: Trachea midline, no thyromegaly or masses. Resp: Other: Lungs: Normal respiratory effort. Clear to auscultation bilaterally. Cardio: Other: Heart: Regular rate and rhythm with normal S1-S2. GI: Other: ABD: Soft, nontender, nondistended, gravid. No guarding or rebound tenderness. No hepatosplenomegaly. NST reactive. TOCO: contractions every 2-3 min. Bedside ultrasound exam shows cephalic presentation. : Other: Cervix: 7/90/-1. Vertex. Back/Spine/Pelvis: Other: Back: No CVA tenderness. Skin: Other: Skin: No lesions, rashes or ulcers noted. Extrem: Other: Extremities: nontender with no edema Psych: Other: Mental status grossly normal, with normal mood and affect. Results Labs Labs: Short CBC 07/26/25 Range/Units 23:16 WBC 13.8 H (4.5-10.0) K/mm3 Hgb 9.5 L (12.0-15.0) g/dL Hct 30.0 L (37.0-47.0) % Plt Count 212 (150-375) k/mm3 Assessment and Plan Assessment and plan (1) SROM (spontaneous rupture of membranes): Status: Acute Assessment and Plan: A: SROM at 36 3/7 weeks. Vertex presentation confirmed. GBS unknown. Active labor. P: Anticipate . Ampicillin. (2) : Qualifiers: Weeks of gestation: 36 weeks Qualified Code(s): Z3A.36 - 36 weeks gestation of Code(s): Z34.90 - Encounter for supervision of normal , unspecified, unspecified trimester Status: Acute
[2025-07-27] MEDS: OXYTOCIN 30 UNITS/NS 500 ML 30 UNITS/500 ML BAG 999 UNITS IV CONT (00:57)
--- NOTE | 2025-07-27 01:11 | PM.OBPRVD ---
OB - Vaginal Delivery Note Procedure Delivery date: 07/27/25 Delivery monitor: External FHT and External Uterine Route of delivery: Laceration Description: Perineal - 2nd Degree Delivery repair: vicryl (3-0) Specimen: Yes (cord blood) Quantitative Blood Loss (ml): 220 Anesthesia type: Epidural Disposition: PACU Complications: None Narrative: 35 y/o at 36 4/7 weeks gestation who presented to the hospital after a gush of clear fluid, followed by contractions. Labor was diagnosed. Bedside ultrasound exam confirmed cephalic presentation. She was given ampicillin for unknown GBS status in the . She received an epidural for pain control. Her labor progressed and her cervix dilated completely. She pushed with good effort and delivered the infant's head to the perineum, followed by the body. The nose and mouth were bulb suctioned. After a delay, the cord was clamped and cut. The was handed off the field. Cord blood was collected. The placenta delivered spontaneously and was grossly normal in appearance. The usual 3 vessel cord was noted. A second degree midline perineal laceration was sustained. This was reapproximated using 3 0 Vicryl in the usual layered fashion. Excellent hemostasis resulted as did excellent reapproximation of the normal anatomy. Needle and instrument counts were correct. The patient was taken to recovery room in stable condition. The infant went to the nursery in stable condition. I was present and scrubbed for the entire delivery. [place] Baby Date of : 07/27/25 Time of : 00:53 Gestational Age by Date: 36 gender: Female Weight (pounds): 6 Weight (ounces): 12 presentation: vertex position: Left Occiput Anterior Placenta delivery description: Spontaneous and Normal Configuration Cord Vessel Description: 3 Vessels and Delayed Cord Clamping score one minute: 8 score five minutes: 9
--- NOTE | 2025-07-27 01:13 | PM.OBDSVD ---
DS: Admitting Diagnosis Discharge Date 07/29/25 Admitting Diagnosis IUP at 36 3/7 SROM DS: Discharge Diagnosis Discharge Diagnosis (1) Normal vaginal delivery: Code(s): O80 - Encounter for full-term uncomplicated delivery Status: Acute OB - DS: Summary OB Procedures : NST and Ultrasound OB Procedures Intrapartum: Spontaneous Vag Delivery and GBS prophylaxis OB Procedures: : None Peripartum Data Laceration Description: Perineal - 2nd Degree Time Spent with Patient Time attestation: Total time spent providing and/or coordinating discharge services: DS: Data Data Completed and Pending Labs on day of discharge: Labs from last 24 hours 07/26/25 07/26/25 23:16 22:52 WBC 13.8 H RBC 3.63 L Hgb 9.5 L Hct 30.0 L MCV 82.6 MCH 26.2 MCHC 31.7 L RDW 14.9 H Plt Count 212 MPV 11.7 H Immature Gran % (Auto) 0.8 H Neut % (Auto) 71.0 Lymph % (Auto) 23.0 [place] % (Auto) 4.8 Eos % (Auto) 0.3 Baso % (Auto) 0.1 L Lymph # (Auto) 3.16 [place] # (Auto) 0.7 H Eos # (Auto) 0.0 Baso # (Auto) 0.0 Abs Immat Gran (auto) 0.11 H Absolute Neuts (auto) 9.8 H Absolute Nucleated RBC 0.000 Nucleated RBC % 0.0 Membranes Rupture Rom plus positive Syphilis IgG/IgM Ab Non-reactive Blood Type O Positive Antibody Screen Negative Discharge Plan Discharge Attending physician on discharge: Jose Antonio Espinosa Discharging Clinician: Jose Antonio Espinosa Patient Disposition: Home Activity: pelvic rest Diet: regular Discharge Instructions: Call or return if temperature above 100.4? F, increased abdominal pain, increased vaginal bleeding or any new problems. Patient Language: Korean Stand Alone Forms: General Discharge Information Follow-up/Referrals: Jose Antonio Espinosa MD [Physician, GAS TRANSFER OPERATOR] - Call for Appointment Discharge Medications: New ibuprofen 600 mg tablet 600 mg PO Q6H PRN (Reason: cramps) Qty: 30 0RF Continued ferrous sulfate 325 mg (65 mg iron) tablet 325 mg PO DAILY Classic 28 mg iron- 800 mcg Tablet 1 tablet PO DAILY ondansetron 4 mg tablet,disintegrating 4 mg PO Q6H PRN (Reason: nausea and vomiting) Qty: 30 1RF omeprazole 20 mg capsule,delayed release(DR/EC) 20 mg PO DAILY Qty: 90 0RF Date of admission: 07/26/25 22:38 Primary Care Provider: Lizz Long Admitting Provider: Jose Antonio Espinosa Attending physician on admission: Jose Antonio Espinosa Condition: Stable
[2025-07-27] MEDS: OXYTOCIN 30 UNITS/NS 500 ML 30 UNITS/500 ML BAG 125 UNITS IV CONT (01:22)
--- NOTE | 2025-07-27 03:25 | OBPPTRN ---
Patient transferred to post room #283 via wheelchair. Support person present. Oriented to unit, room, information board, rooming in, admission packet and security measures. Patient verbalizes understanding.
[2025-07-27] MEDS: IBUPROFEN 600 MG TABLET PO ×3 (04:55→17:47)
[2025-07-27] MEDS: ACETAMINOPHEN 325 MG TABLET 650 MG PO ×3 (04:56→17:47)
--- NOTE | 2025-07-27 08:11 | PM.OBPNVD ---
OB - PN: Subj Subjective Date/time seen: 07/27/25 08:11 Patient comments: no complaints, pain well controlled and tolerating diet Vadito feeding status: exclusively breast feeding Narrative: patient doing well this AM. No complaints. Pain is well controlled. She reports minimal bleeding. She is ambulating and voiding without difficulty. She is tolerating PO. She denies N/V, fever, chills. OB - PN: Obj Data Labs 07/26/25 23:16 Labs: Laboratory Results - last 24 hr 07/26/25 07/26/25 22:52 23:16 WBC 13.8 H RBC 3.63 L Hgb 9.5 L Hct 30.0 L MCV 82.6 MCH 26.2 MCHC 31.7 L RDW 14.9 H Plt Count 212 MPV 11.7 H Immature Gran % (Auto) 0.8 H Neut % (Auto) 71.0 Lymph % (Auto) 23.0 [place] % (Auto) 4.8 Eos % (Auto) 0.3 Baso % (Auto) 0.1 L Lymph # (Auto) 3.16 [place] # (Auto) 0.7 H Eos # (Auto) 0.0 Baso # (Auto) 0.0 Abs Immat Gran (auto) 0.11 H Absolute Neuts (auto) 9.8 H Absolute Nucleated RBC 0.000 Nucleated RBC % 0.0 Membranes Rupture Rom plus positive Syphilis IgG/IgM Ab Non-reactive Blood Type O Positive Antibody Screen Negative OB - PN A/P Plan day: 1 Plan: routine care Comments: patient doing well H/H 9.01/05, asymptomatic continue routine care Time Spent With Patient Time: Total time spent is greater than 50% in coordination of care (as documented) at patient's floor/unit and/or counseling patient: Time with patient: less than 15 minutes Review of Systems Review of Systems: All systems reviewed & are unremarkable except as noted in HPI and below Exam Const: General: comfortable and no acute distress Resp: Effort & Inspection: normal respiratory effort Cardio: Rate: regular rate GI: GI Palp: Yes Soft to palpation and No Tenderness to palpation present (GI) Auscultation: normal bowel sounds Other: fundus firm and below umbilicus. Psych: Affect: normal affect
[2025-07-27] MEDS: DOCUSATE SODIUM 100 MG CAPSULE PO (08:49)
[2025-07-27] MEDS: MULTIVIT/MIN/PREN/FOL AC/IRON TABLET 1 TAB PO (08:49)
--- NOTE | 2025-07-27 13:26 | PC.NURSE ---
0705 Consulted with patient to assess needs related to . Discussed with mother her successes, concerns and any questions she has. Per mother infant fed great at the breast with her first feeding and then with this she will not latch, mother did 20 mins of hand expression and received many drops of colostrum. We reviewed working with the , supporting breast, protecting her nipples with an optimal deep latch, good positioning, and good hand washing. Encouraged understanding the benefits of skin to skin, responding to feeding cues, frequencies of feeding 8-12 times in 24 hours (approximately 2-3 hours), duration of feedings, milk production, intake/output feeding sheet and signs of adequate intake encouraging swallowing at the breast. Reviewed positioning and alignment, supporting breast, off-centered (asymmetrical latch) and leading with the chin with big, open, wide gape. Nipple care reviewed with optimal latch, good positioning and using clean hands when touching her breast. Resources used to facilitate learning were used from the [visual handouts/ tool/mom and baby guide]. Mother voiced understanding of the education shared, to call for assistance if the does not latch or if there is discomfort with . Reported to the Primary RN. 1120 Per Primary RN, Sreedhar Nicholas, mother was currently and that was latch optimally, she had already been nursing for 20 minutes. 1320 Checked in with parents, per mother did great with the feeding at 1100, no questions or concerns at this time. Mother to call for assistance if the does not latch or if there is discomfort with . Reported to the Primary RN.
[2025-07-28 04:52] LABS: Hematocrit 26.3 % (37.0-47.0); Hemoglobin 8.3 g/dL (12.0-15.0)
[2025-07-28 09:45] VITALS: BP 121/81; PULSE 91; RESP 18; TEMP 36.7
[2025-07-28] MEDS: MULTIVIT/MIN/PREN/FOL AC/IRON TABLET 1 TAB PO (09:46)
[2025-07-28] MEDS: DOCUSATE SODIUM 100 MG CAPSULE PO (09:46)
--- NOTE | 2025-07-28 13:59 | P.PNOB_ITS ---
OB - PN: Subj Subjective Date/time seen: 07/28/25 13:59 Narrative: Pain OK. OB - PN: Obj Data Labs 07/28/25 04:29 Labs: Laboratory Results - last 24 hr 07/28/25 04:29 Hgb 8.3 L Hct 26.3 L OB - PN A/P Plan day: 1 Comments: A: PPD#1, doing well. P: Routine care. Exam 2 Psych: Other: AVSS ABD soft, nontender, fundus firm EXT nontender
[2025-07-28 19:45] VITALS: BP 117/72; PULSE 99; RESP 18; TEMP 36.8; O2SAT 99
[2025-07-28] MEDS: IBUPROFEN 600 MG TABLET PO (20:22)
--- NOTE | 2025-07-29 09:00 | WPDANLDPN2 ---
Anes-Prog Note L&D Date/Time: 07/29/25 09:00 Comfortable throughout: labor and delivery Neuraxial method: epidural Epidural/Spinal procedure site: clean & non-tender Neuro status: Neuro function grossly intact. Cardiovascular status: normal Respiratory status: normal Airway patency: baseline Mental status: baseline Post-Op hydration status: normal Vital Signs: Last Vital Signs Temp 98.2 F 07/28/25 19:45 Pulse 99 07/28/25 19:45 Resp 18 07/28/25 19:45 BP 117/72 07/28/25 19:45 Pulse Ox 99 07/28/25 19:45 O2 Del Method Room Air 07/28/25 19:35 Pain score (VAS): 0 I/O: Intake & Output 07/28/25 07/29/25 07/29/25 23:59 07:59 15:59 Intake Total 250 Balance 250 Post-procedural complaints: none Patient feedback: Patient satisfied with anesthetic care.
--- NOTE | 2025-07-29 09:45 | P.PNOB_ITS ---
OB - PN: Subj Subjective Date/time seen: 07/29/25 09:45 Narrative: Pain OK. Would like to go home. OB - PN: Obj Data Labs 07/28/25 04:29 OB - PN A/P Plan day: 2 Comments: A: PPD#2, doing well. P: Home to f/u 6 weeks. Exam 2 Psych: Other: AVSS ABD soft, nontender, fundus firm EXT nontender
[2025-07-29 09:50] VITALS: BP 124/81; PULSE 97; RESP 16; TEMP 36.8
[2025-07-29] MEDS: MULTIVIT/MIN/PREN/FOL AC/IRON TABLET 1 TAB PO (09:56)
[2025-07-29] MEDS: IBUPROFEN 600 MG TABLET PO (09:56)
[2025-07-30 08:17] VITALS: BP 116/83; PULSE 92; RESP 20; TEMP 36.6; O2SAT 98
== END 2025-07-29 12:10 | disposition home or self-care (01) | DRG 807 ==
LOC: ANHLDR 07-31 11:27 → ANHOB2 07-31 11:27
PROVIDERS: Admitting Provider Obstetrics & Gynecology; PCP Family Medicine; Visit Provider Obstetrics & Gynecology
DX: O60.14X0 Preterm labor third trimester with preterm delivery third trimester, not applicable or unspecified (principal); Z37.0 Single live birth; Z3A.36 36 weeks gestation of pregnancy; O62.3 Precipitate labor; O70.1 Second degree perineal laceration during delivery; Z23 Encounter for immunization
CPT/HCPCS: 36415; 84112; 85014; 85018; 85025; 86593; 86850; 86900; 86901; A9270; J0290; J2590; J2795; J7120